=== PATIENT | female | born 1990 | race Hispanic/Latino ===

== ENCOUNTER 2016-08-21 03:16 | Inpatient (IN) | payer MEDICAID ==
[~2016-08-21] VITALS: Ht 144.8 cm; Wt 89.4 kg
[2016-08-21] MEDS ORDERED: Lactated Ringer's 1,000 ML IV PRN (03:31)
[2016-08-21] MEDS ORDERED: Sodium Chloride LOK Flush 10 mL Syringe IVFLUSH PRN (03:35)
[2016-08-21] MEDS ORDERED: Carboprost 250 mCg/mL Inj IM PRN ×2 (03:35→06:05)
[2016-08-21] MEDS ORDERED: Penicillin G K Inj 5,000,000 UNITS in Dextrose 5% Minibag Plus 100 ML IV ONE (03:35)
[2016-08-21] MEDS ORDERED: fentaNYL-PF 50 mCg/mL 2 mL Inj IVPUSH PRN (03:35)
[2016-08-21] MEDS ORDERED: Hemorrhage Kit, Post Partum XX ONE ×2 (03:35→06:05)
[2016-08-21] MEDS ORDERED: Oxytocin 30 Units/500 mL LR 30 UNITS in IV Premix 1 EACH IV PRN ×2 (03:35→06:05)
[2016-08-21] MEDS ORDERED: Methylergonovine 0.2 mg/mL Inj IM PRN ×2 (03:35→06:05)
[2016-08-21] MEDS ORDERED: Oxytocin 10 Unit/mL Inj IM PRN ×2 (03:35→06:05)
[2016-08-21 04:02] LABS: Mean Corpuscular Hemoglobin 22.8 pg (27.0-35.0); Mean Corpuscular Volume 71.5 fL (81-100)
--- NOTE | 2016-08-21 04:22 | PCM.HPOB ---
Subjective Date of Service: Aug 21, 2016 Referring Provider: Admitting Physician: Cara Pereira MD Primary Care Physician: Cara Pereira MD Attending Physician: Cara Pereira MD Chief Complaint labor contractions at term History of Present History of Present Illness 26 y/o EDC=08/16/16 by 15 wk u/s, GBS bacteriuria, admitted around 3:30 this AM for active labor at 40 wk 5 d gestational age. Initial exam revealed that she was 5 cm dilated with a bulging bag. pt sees Dr. Beltran at [facility] for care. Her labs: O+, RPR nonreactive, rubella immune, HBsAg neg, HIV neg , GC/CT neg, quad screen normal, glucose tolerance test normal, normal PAP, GBS bacteriuria noticed, and anemia noticed. OB History: (4), Para (3), Term Past Medical History Obstetrical History: (1) NVD at 40 wk on 08/05/05, [place]; (2) NVD at 35 wk due to PPROM on 05/30/08 , [facility]; (3) NVD at 40 wk on 06/14/11, [facility]. Hx Tobacco Use: No Hx Alcohol Use: No Hx Substance Use: No Past Family History Living Arrangement: with Family Genetic Screening/Counseling Genetic Screening/Counseling: Negative Review of Systems ROS active labor Allergy Coded Allergies: No Known Allergies (Verified Allergy, Mild, 05/30/08) Exam Vital Signs T=36.6; 115/72, pulse=60, Resp=14 Exam category 1 tracing. Constitutional: Well-developed, Well-nourished HEENT: Atraumatic Lungs: Clear to Auscultation Heart: Exam Unremarkable Abdomen: Gravid Extremities: Warm, No Edema Neuro: Grossly Neurologically Intact Labs/Diagnostics Labs Hgb=9,9, Xzz=646 Maternal Blood Type: O Antibody Screen: Negative Group B Strep Results: Positive Previous with GBS: No Rubella: Immune OB Intrapartum Assessment/Plan Assessment active labor at term; GBS positive; anemia. Will do penicillin; pt declined epidural anesthesia; anticipate normal vaginal delivery. Cara Pereira MD Aug 21, 2016 04:22
[2016-08-21] MEDS ORDERED: Lactated Ringer's 1,000 ML IV SCH (06:02)
[2016-08-21] MEDS ORDERED: Witch Hazel-Glycerin Pads TOPICAL PRN (06:05)
[2016-08-21] MEDS ORDERED: Benzocaine (Dermoplast) 20% 60 Gm Spray TOPICAL PRN (06:05)
[2016-08-21] MEDS ORDERED: HYDROcodone-APAP 5-325 mg Tablet PO PRN (06:05)
[2016-08-21] MEDS ORDERED: LANOlin HPA 7 Gm Ointment TOPICAL PRN (06:05)
--- NOTE | 2016-08-21 06:17 | PCM.OBVAG ---
Vaginal Delivery Date of Service Aug 21, 2016 Pre Operative Diagnosis Pre Operative Diagnosis active labor at term Post Operative Diagnosis Post Operative Diagnosis normal vaginal delivery at term Procedure Procedure: AROM at ~5 AM, ~7 cm dilated, clear fluid. Complete at 5:40, delivered at 5:43 AM after one push; head position: PAPITO; vigorous baby boy, 8/9, wt 3615 g; placenta delivered intact, 3 v cord; intact perineum; estimated blood loss~350 ml; no epidural; received 1 dose of penicillin prior to delivery for GBS positive status. Both the mother and the remained in stable conditions after the delivery. Obstetical Procedure: Normal Spontaneous Vaginal Delivery Director Of [employer]/Educational Institution President Provider and Educational Institution President: Dr. Pereira and nursing staff were present at the delivery Indication for Procedure Induction: Active labor Findings Obstetrical Findings: (Male), Cord (3 Vessel), Weight (3615), Presentation (PAPITO), 1 minute (8), 5 minutes (9), Placenta (Intact/ Normal), Perineal Laceration (intact) Analgesia/Medications Obstetrical Anesthesia: IV pain medication Blood Loss & Administration Estimated Blood Loss: 350 Post Procedure Plan Post Procedure Plan routine care Post delivery Condition: Mom stable, Baby stable to nursery Cara Pereira MD Aug 21, 2016 06:17
[2016-08-21] MEDS: Ascorbic Acid 500 mg Tablet PO SCH ×2 (07:49→20:14)
[2016-08-21] MEDS ORDERED: Penicillin G K Inj 3,000,000 UNITS in IV Premix 1 EACH IV SCH (08:30)
[2016-08-22 07:59] LABS: Mean Corpuscular Volume 72.6 fL (81-100)
--- NOTE | 2016-08-22 07:59 | PCM.DIOB ---
Obstetrical Disch Instruction Date of Service: Aug 22, 2016 Dates of Hospitalization Date of Hospital Admission Aug 21, 2016 at 03:30 Providers Admitting Physician: Cara Pereira MD Primary Care Physician: Cara Pereira MD Attending Physician: Cara Pereira MD Discharge Diagnosis Problems: (1) Normal delivery Status: Acute ICD Code: O80 (2) Anemia Status: Acute ICD Code: D64.9 Diet Discharge Diet: No restrictions Activity Discharge Activity-General: Pelvic Rest for 6 weeks, Activity as pain allows, Activity as energy allows Dressing and Incisional Care Hygiene: May shower, Perineal care, Sitz bath, Dermoplast spray, Witch Estrella pads, Ice Follow Up Plan Follow Up Plan meds faxed electronically to [facility] pharmacy by Dr. Coronel, done through the [facility] outpatient chart Follow-up Provider (F9): Cara Pereira MD Follow-up appointment: Weeks (6) Call your provider for: Fever or Chills, Shortness of breath, Heavy vaginal bleeding, Heavy bleeding, Epigastric pain, Excessive constipation, Vaginal discomfort, Red painful breasts, Other (swollen, painful leg) Jaret Coronel MD Aug 22, 2016 07:58
[2016-08-22] MEDS: Ascorbic Acid 500 mg Tablet PO SCH (08:22)
[2016-08-22 09:20] VITALS: BP 117/57; PULSE 73; RESP 17
--- NOTE | 2016-08-29 08:32 | DIS ---
[address] [address] DISCHARGE SUMMARY PATIENT: KIRTI PITTMAN : 1990 MR#: [id number] ADMIT: 08/21/2016 JOB ID: [id number] DIS: 08/22/2016 ADMIT DIAGNOSES: 1. Multiparous, term, active labor. 2. History of GBS bacteriuria. DISCHARGE DIAGNOSES: 1. G 4, now P 4 status post normal spontaneous vaginal delivery, precipitous labor. 2. Anemia. HOSPITAL COURSE: For details of admission, please see H and P and delivery note by Dr. Cara Pereira. DISCHARGE EXAMINATION: The patient is doing well, ambulating without problems with normal bowel and bladder function. Her lochia is normal. Vital signs are stable. She is afebrile. The patient in no acute distress. Pleasant, cooperative. Cardiovascular: Regular rate and rhythm. S1, S2. No murmurs, gallops, rubs. Lungs: Clear to auscultation bilaterally without wheezes. Abdomen is soft. Nontender. Uterine fundus is palpable at umbilicus, firm. Lower extremities without edema. LABORATORIES: White count 8.8, hematocrit 29.7, platelets 237. The patient is discharged home. Plan followup in six weeks with [facility]. Reviewed usual complications of a peripartum period, recognition of complications and how to access care if they occur.
== END 2016-08-22 13:58 | disposition home or self-care (01) | DRG 775 ==
LOC: FBCO 03:16 → FBC 03:30
PROVIDERS: ADMIT Family Medicine; ATTEND Family Medicine
PROC: 10E0XZZ Delivery of Products of Conception, External Approach (ICD-10-PCS; principal; 2016-08-21)
PROC: 10907ZC Drainage of Amniotic Fluid, Therapeutic from Products of Conception, Via Natural or Artificial Opening (ICD-10-PCS; 2016-08-21)
DX: O99.02 Anemia complicating childbirth (principal); O99.824 Streptococcus B carrier state complicating childbirth; Z3A.40 40 weeks gestation of pregnancy; Z37.0 Single live birth